=== PATIENT | female | born 1970 | race Caucasian/White ===

== ENCOUNTER 2019-06-20 09:52 | Outpatient (CLI) | payer OTHER | END 2019-06-20 13:19 | disposition home or self-care (01) | LOC: TOM 09:52 | DX: R10.84 Generalized abdominal pain (principal) ==

== ENCOUNTER → 2019-09-23 08:30 | Outpatient (CLI) | payer OTHER ==
[~2019-09-23 08:30] MED LIST: ASPIR 8181 MG PO; COZAAR25 MG PO; FORTAMET500 MG PO; ZOCOR PO
== END | disposition home or self-care (01) ==
LOC: LAB 08:30
DX: E11.00 Type 2 diabetes mellitus with hyperosmolarity without nonketotic hyperglycemic-hyperosmolar coma (NKHHC) (principal); N91.2 Amenorrhea, unspecified; E78.49 Other hyperlipidemia; E34.8 Other specified endocrine disorders; N95.1 Menopausal and female climacteric states; E23.6 Other disorders of pituitary gland; R19.00 Intra-abdominal and pelvic swelling, mass and lump, unspecified site; N39.0 Urinary tract infection, site not specified; E55.9 Vitamin D deficiency, unspecified

== ENCOUNTER 2019-09-25 04:25 | Day surgery (SDC) | payer OTHER | END 2019-09-25 12:45 | disposition home or self-care (01) | LOC: CIR.AMB 04:25 → EDSTATUS 08:15 → CIR.AMB 08:15 → SURG 08:15 → CIR.AMB 12:45 | DX: K81.1 Chronic cholecystitis (principal) ==